=== PATIENT | female | born 1960 | race African-American/Black ===

== ENCOUNTER 2017-10-01 11:19 | Inpatient (IN) | payer OTHER ==
[~2017-10-01] VITALS: Ht 167.6 cm; Wt 101.4 kg
[~2017-10-01 11:19] MED LIST: AMLO5 PO; CYCL1PAK PO; ERGO2000 PO; ESCI10TA PO; GABA300 PO; LISI20 PO; METF500 PO; NAPR500 PO; RISP1TAB54 PO; RISP3 PO; TRAZ50TA4 PO; VENTAER INH
[2017-10-01 11:23] VITALS: BP 198/100; PULSE 108; RESP 22; TEMP 98.5; O2SAT 98
[2017-10-01 13:46] LABS: AUTOMATED NEUTROPHIL # 3.6 TH/MM3 (1.8-7.7); BASOPHIL # 0.1 TH/MM3 (0-0.2); BASOPHIL % 0.8 % (0.0-2.0); EOSINOPHIL # 0.1 TH/MM3 (0-0.4); EOSINOPHIL % 1.9 % (0.0-4.0); HEMATOCRIT 40.4 % (35.0-46.0); HEMOGLOBIN 13.1 GM/DL (11.6-15.3); LYMPH % 41.9 % (9.0-44.0); LYMPHOCYTE # 3.3 TH/MM3 (1.0-4.8); MEAN CELL VOLUME 83.6 FL (80.0-100.0); MEAN CORPUSCULAR HEMOGLOBIN 27.1 PG (27.0-34.0); MEAN CORPUSCULAR HGB CONC 32.4 % (32.0-36.0); MEAN PLATELET VOLUME 8.7 FL (7.0-11.0); MONO % 9.1 % (0.0-8.0); MONOCYTE # 0.7 TH/MM3 (0-0.9); NEUT % 46.3 % (16.0-70.0); PLATELET COUNT 270 TH/MM3 (150-450); RED BLOOD COUNT 4.83 MIL/MM3 (4.00-5.30); RED CELL DISTRIBUTION WIDTH 14.3 % (11.6-17.2); WHITE BLOOD COUNT 7.8 TH/MM3 (4.0-11.0)
[2017-10-01 14:04] LABS: ALBUMIN 3.5 GM/DL (3.4-5.0); ALT (GPT) 21 U/L (10-53); AST (GOT) 34 U/L (15-37); BICARBONATE 26.6 MEQ/L (21.0-32.0); BLOOD UREA NITROGEN 13 MG/DL (7-18); CHLORIDE 107 MEQ/L (98-107); CREATININE 1.09 MG/DL (0.50-1.00); GLOMERULAR FILTRATION RATE 62 ML/MIN (>89); GLUCOSE,RANDOM 83 MG/DL (74-106); SODIUM (NA) 142 MEQ/L (136-145)
[2017-10-01 14:12] LABS: ALKALINE PHOSPHATASE 130 U/L (45-117); TOTAL BILIRUBIN ADULT 0.3 MG/DL (0.2-1.0); TOTAL PROTEIN 8.2 GM/DL (6.4-8.2)
--- NOTE | 2017-10-01 14:40 | PD ---
HPI Chief Complaint: Psychiatric Symptoms Time Seen by Provider: 12:00 Travel History International Travel<30 days: No Contact w/Intl Traveler<30days: No Traveled to known affect area: No History of Present Illness HPI 57-year-old female with PMH of schizoaffective disorder, bipolar type presents the ED for psychiatric evaluation. Patient s endorses several social stressors including the of her mom, the incarceration of her son and living with her sister who will not allow her case workers to visit household. She endorses compliance with her daily medications. She states that despite taking meds she has been hearing voices that tell her to harm herself. She states that today the voices were telling her to go in the kitchen and cut herself. Endorses previous history of suicidal gesture of cutting herself. She states that instead she went outside and sought medical attention. She denies any somatic complaints. Endorses distant history of crack cocaine and alcohol use, states that she has been sober many years now. She did not take her anti- hypertensive medications today. PFSH Past Medical History Anemia: Yes Arthritis: No Asthma: Yes Autoimmune Disease: No Blood Disorders: No Anxiety: Yes Depression: Yes Heart Rhythm Problems: No Cancer: Yes Cardiac Catheterization: No Cardiovascular Problems: Yes High Cholesterol: No Chemotherapy: No Chest Pain: Yes Congestive Heart Failure: No COPD: No Cerebrovascular Accident: Yes (TIA ) Coronary Artery Disease: Yes Diabetes: Yes Patient Takes Glucophage: No Diminished Hearing: Yes (L EAR) Endocrine: No GERD: No Glaucoma: No Genitourinary: No Headaches: Yes Hepatitis: No Hiatal Hernia: No Hypertension: Yes Immune Disorder: No Kidney Stones: No Musculoskeletal: No Neurologic: Yes (SEIZURE X1) Psychiatric: Yes Reproductive: No Immunizations Current: No Migraines: No Myocardial Infarction: Yes Radiation Therapy: No Renal Failure: No Schizophrenia: Yes (SCHIZOAFFECTIVE DISORDER) Seizures: Yes Sickle Cell Disease: No Sleep Apnea: No Thyroid Disease: No Ulcer: Yes Tetanus Vaccination: > 5 Years Influenza Vaccination: No PNEUMOCCOCAL Vaccine (Year): 2 ?: Not Menopausal: Yes : 3 Para: 3 Miscarriage: 0 : 0 Tubal Ligation: Yes (1979) Past Surgical History Abdominal Surgery: No AICD: No Appendectomy: No Arteriovenous Shunt: No Body Medical Devices: DENTURES Cardiac Surgery: No Cholecystectomy: No Coronary Artery Bypass Graft: No Ear Surgery: No Endocrine Surgery: No Eye Surgery: No Genitourinary Surgery: No Gynecologic Surgery: Yes (TUBAL LIGATION) Insulin Pump: No Joint Replacement: No Neurologic Surgery: No Oral Surgery: No Pacemaker: No Thoracic Surgery: No Other Surgery: Yes Social History Alcohol Use: No (QUIT IN 2007) Tobacco Use: No (QUIT IN 2007) Substance Use: No (previous drug user - clean 8 years ) Allergies-Medications (Allergen,Severity, Reaction): Coded Allergies: dawit (Unverified Allergy, Severe, Rash, 12/30/16) morphine (Unverified Allergy, Severe, dizziness, unresponsiveness, 12/30/16 ) orange (Unverified Allergy, Severe, Rash, 12/30/16) Reported Meds & Prescriptions Reported Meds & Active Scripts Active Risperdal (Risperidone) 3 Mg Tab 3 Mg PO HS 14 Days Risperdal M-Tab (Risperidone) 1 Mg Tab 1 Mg PO BID Naprosyn (Naproxen) 500 Mg Tab 500 Mg PO BID Glucophage 500 mg (Metformin HCl) 500 Mg Tab 500 Mg PO DIRECTED 1 1/2 daily Prinivil 20 mg (Lisinopril) 20 Mg Tab 20 Mg PO DAILY Neurontin (Gabapentin) 300 Mg Cap 300 Mg PO BID Norvasc (Amlodipine Besylate) 5 Mg Tab 5 Mg PO HS Reported Ventolin Hfa (Albuterol Sulfate) 18 Gm Aero 0 INH UNKNOWN DOSE Vitamin D2 (Ergocalciferol) 2,000 Unit Tab 50,000 Unit PO WEEKLY Trazodone Hcl (Trazodone HCl) 50 Mg Tab 50 Mg PO DAILY Escitalopram Oxalate 10 Mg Tab 10 Mg PO DAILY Cyclobenzaprine Hcl (Cyclobenzaprine HCl) 10 Mg Tab 10 Mg PO BID Review of Systems Except as stated in HPI: all other systems reviewed are Neg Physical Exam Narrative GENERAL: Well-nourished, well-developed female no acute distress. PSYCH: Occasionally tearful, depressed mood. SKIN: Focused skin assessment warm/dry. HEAD: Normocephalic. EYES: No scleral icterus. No injection or drainage. NECK: Supple, trachea midline. No JVD or lymphadenopathy. CARDIOVASCULAR: Regular rate and rhythm without murmurs, gallops, or rubs. RESPIRATORY: Breath sounds equal bilaterally. No accessory muscle use. GASTROINTESTINAL: Abdomen soft, non-tender, nondistended. MUSCULOSKELETAL: No cyanosis, or edema. BACK: Nontender without obvious deformity. No CVA tenderness. Data Data Last Documented VS Vital Signs Date Time Temp Pulse Resp B/P (MAP) Pulse Ox O2 Delivery O2 Flow Rate FiO2 10/01/17 15:41 97.6 97 18 185/100 (128) 98 Room Air Orders Orders Complete Blood Count With Diff (10/01/17 12:13) Comprehensive Metabolic Panel (10/01/17 12:13) Thyroid Stimulating Hormone (10/01/17 12:13) Psych Screen (10/01/17 12:13) Drug Screen, Random Urine (10/01/17 12:13) Alcohol (Ethanol) (10/01/17 12:13) Lisinopril (Prinivil) (10/01/17 15:45) Labs Laboratory Tests Test 10/01/17 12:55 10/01/17 13:00 White Blood Count 7.8 TH/MM3 Red Blood Count 4.83 MIL/MM3 Hemoglobin 13.1 GM/DL Hematocrit 40.4 % Mean Corpuscular Volume 83.6 FL Mean Corpuscular Hemoglobin 27.1 PG Mean Corpuscular Hemoglobin Concent 32.4 % Red Cell Distribution Width 14.3 % Platelet Count 270 TH/MM3 Mean Platelet Volume 8.7 FL Neutrophils (%) (Auto) 46.3 % Lymphocytes (%) (Auto) 41.9 % Monocytes (%) (Auto) 9.1 % Eosinophils (%) (Auto) 1.9 % Basophils (%) (Auto) 0.8 % Neutrophils # (Auto) 3.6 TH/MM3 Lymphocytes # (Auto) 3.3 TH/MM3 Monocytes # (Auto) 0.7 TH/MM3 Eosinophils # (Auto) 0.1 TH/MM3 Basophils # (Auto) 0.1 TH/MM3 CBC Comment AUTO DIFF Differential Comment AUTO DIFF CONFIRMED Blood Urea Nitrogen 13 MG/DL Creatinine 1.09 MG/DL Random Glucose 83 MG/DL Total Protein 8.2 GM/DL Albumin 3.5 GM/DL Calcium Level 9.0 MG/DL Alkaline Phosphatase 130 U/L Aspartate Amino Transf (AST/SGOT) 34 U/L Alanine Aminotransferase (ALT/SGPT) 21 U/L Total Bilirubin 0.3 MG/DL Sodium Level 142 MEQ/L Potassium Level 4.3 MEQ/L Chloride Level 107 MEQ/L Carbon Dioxide Level 26.6 MEQ/L Anion Gap 8 MEQ/L Estimat Glomerular Filtration Rate 62 ML/MIN Thyroid Stimulating Hormone 3rd Gen 0.810 uIU/ML Ethyl Alcohol Level LESS THAN 3 MG/DL Urine Opiates Screen NEG Urine Barbiturates Screen NEG Urine Amphetamines Screen NEG Urine Benzodiazepines Screen NEG Urine Cocaine Screen NEG Urine Cannabinoids Screen NEG MDM Medical Decision Making Medical Screen Exam Complete: Yes Emergency Medical Condition: Yes Differential Diagnosis Adjustment disorder versus anxiety versus bipolar versus depression versus dementia versus electrolyte disorder versus malingering versus mood disorder versus ODD versus psychosis versus PTSD versus schizophrenia versus schizoaffective disorder versus substance-induced mood disorder versus other Narrative Course 57-year-old female with PMH of schizoaffective disorder, bipolar type presents the ED for psychiatric evaluation. Patient s endorses several social stressors including the of her mom, the incarceration of her son and living with her sister who will not allow her case workers to visit household. She endorses compliance with her daily medications. She states that despite taking meds she has been hearing voices that tell her to harm herself. She states that today the voices were telling her to go in the kitchen and cut herself. Endorses previous history of suicidal gesture of cutting herself. She states that instead she went outside and sought medical attention. She denies any somatic complaints. Endorses distant history of crack cocaine and alcohol use, states that she has been sober many years now. She did not take her anti- hypertensive medications today. Vitals reviewed. Pains hypertensive on presentation. Physical exam is unremarkable. Lab work without concerning abnormalities. Patient was administered in her daily dose of lisinopril. She is medically clear for psychiatric evaluation. Marie Worley October 01, 2017 14:40
[2017-10-01 15:41] VITALS: BP 185/100; PULSE 97; RESP 18; TEMP 97.6; O2SAT 98
[2017-10-01] MEDS ORDERED: LISINOPRIL 20 MG TAB PO ONE (15:45)
[2017-10-01] MEDS ORDERED: AMLO10TA2 PO (18:04)
[2017-10-01] MEDS ORDERED: DULO1CAP PO (18:14)
[2017-10-01 18:22] VITALS: BP 203/109; PULSE 89; RESP 20; O2SAT 98
[2017-10-01] MEDS ORDERED: amLODIPine BESYLATE 5 MG TAB PO ONE (18:30)
--- NOTE | 2017-10-01 20:45 | PD ---
History of Present Illness Chief Complaint: Psychiatric Symptoms Time Seen by Provider: 20:20 Travel History International Travel<30 Days: No Contact w/Intl Traveler<30days: No Known affected area: No Legal Status Legal Status: Involuntary [place] Act Signed By: ISAAK Hamlin History of Present Illness: History of Present Illness HPI 57-year-old, -Maltese, single female with PMH of schizoaffective disorder, bipolar type who presents the ED on a voluntary basis for psychiatric evaluation. Patient was placed under an involuntary status by ED provider. Patient reports that she is experiencing several social stressors including the of her mom 7 months ago, the incarceration of her son, having moved in with her sister 4 months ago and her sister not allowing her to have her catalytic case operator's visit her. She also tells me that approximately 4 weeks ago she stopped taking her nighttime medication because she was feeling too sedated. Patient also states she feels depressed with worry that she may have leukemia. This morning she was at home and began to experience increase in auditory command type hallucinations that were telling her to commit suicide. More specifically" they were telling me to go to the kitchen and get a knife and cut myself." Patient instead went outside and "began to pray and to talk to my mama and came to the hospital for help". Patient reports impaired sleep, decreased appetite. EMR is reviewed. Patient was last admitted to our inpatient psychiatric unit on December 2015. Current toxicology is negative. . PFSH Past Medical History Anemia: Yes Arthritis: No Asthma: Yes Autoimmune Disease: No Blood Disorders: No Anxiety: Yes Depression: Yes Heart Rhythm Problems: No Cancer: Yes Cardiac Catheterization: No Cardiovascular Problems: Yes High Cholesterol: No Chemotherapy: No Chest Pain: Yes Congestive Heart Failure: No COPD: No Cerebrovascular Accident: Yes (TIA ) Coronary Artery Disease: Yes Diabetes: Yes Patient Takes Glucophage: No Diminished Hearing: Yes (L EAR) Endocrine: No GERD: No Glaucoma: No Genitourinary: No Headaches: Yes Hepatitis: No Hiatal Hernia: No Hypertension: Yes Immune Disorder: No Kidney Stones: No Musculoskeletal: No Neurologic: Yes (SEIZURE X1) Psychiatric: Yes Reproductive: No Immunizations Current: No Migraines: No Myocardial Infarction: Yes Radiation Therapy: No Renal Failure: No Schizophrenia: Yes (SCHIZOAFFECTIVE DISORDER) Seizures: Yes Sickle Cell Disease: No Sleep Apnea: No Thyroid Disease: No Ulcer: Yes Tetanus Vaccination: > 5 Years Influenza Vaccination: No PNEUMOCCOCAL Vaccine (Year): 2 ?: Not Menopausal: Yes : 3 Para: 3 Miscarriage: 0 : 0 Tubal Ligation: Yes (1979) Past Surgical History Abdominal Surgery: No AICD: No Appendectomy: No Arteriovenous Shunt: No Body Medical Devices: DENTURES Cardiac Surgery: No Cholecystectomy: No Coronary Artery Bypass Graft: No Ear Surgery: No Endocrine Surgery: No Eye Surgery: No Genitourinary Surgery: No Gynecologic Surgery: Yes (TUBAL LIGATION) Insulin Pump: No Joint Replacement: No Neurologic Surgery: No Oral Surgery: No Pacemaker: No Thoracic Surgery: No Other Surgery: Yes Psychiatric History Psychiatric History Hx Psychiatric Treatment: Has had 2 inpatient psychiatric admissions to [facility] in 2016. One previous suicide attempt by cutting her wrist. Currently receives outpatient treatment at [facility] in [facility] and her counselor is Franny Medina. Her next outpatient appointment is in December History of Inpatient Treatment: Yes ([facility]) Guns or firearms in home: No Social History Single, has been living with her sister for the past 4 months. She has completed high school. Is currently on disability. Hx Alcohol Use: Yes (QUIT IN 2007) Hx Tobacco Use: No (QUIT IN 2007) Hx Substance Use: Yes Substance Use Type: Crack Other Substances Used: REPORTS BEING CLEAN AND SOBER FOR 10 YRS. PAST CRACK COCAINE Hx of Substance Use Treatment: No Family Psychiatric History None reported Allergies-Medications (Allergen,Severity, Reaction): Coded Allergies: dawit (Unverified Allergy, Severe, Rash, 12/30/16) morphine (Unverified Allergy, Severe, dizziness, unresponsiveness, 12/30/16 ) orange (Unverified Allergy, Severe, Rash, 12/30/16) Reported Meds & Prescriptions Reported Meds & Active Scripts Active Risperdal M-Tab (Risperidone) 1 Mg Tab 1 Mg PO BID Prinivil 20 mg (Lisinopril) 20 Mg Tab 20 Mg PO DAILY Reported Duloxetine DR (Duloxetine HCl) 20 Mg Capdr 20 Mg PO DAILY Amlodipine (Amlodipine Besylate) 10 Mg Tab 10 Mg PO DAILY Ventolin Hfa (Albuterol Sulfate) 18 Gm Aero 0 INH UNKNOWN DOSE Trazodone Hcl (Trazodone HCl) 50 Mg Tab 50 Mg PO DAILY Escitalopram Oxalate 10 Mg Tab 20 Mg PO DAILY Review of Systems Psychiatric: COMPLAINS OF: Depression, Hallucinations, Suicidal Ideation Mental Status Examination Appearance: Appropriate (Patient is maintaining basic hygiene) Consciousness: Alert Orientation: x4 Motor Activity: Normal gait Speech: Unremarkable Language: Adequate Fund of Knowledge: Adequate Attention and Concentration: Adequate Memory: Unremarkable Mood: Sad Affect: Blunt Thought Process & Associations: Intact, Goal directed Thought Content: Hallucinations Hallucination Type: Auditory (Command type to commit suicide) Delusion Type: None Suicidal Ideation: No Suicidal Plan: No Suicidal Intention: No Homicidal Ideation: No Homicidal Plan: No Homicidal Intention: No Insight: Fair Judgment: Adequate MDM Medical Decision Making Medical Record Reviewed: Yes Assessment/Plan 57-year-old, -Maltese, single female with PMH of schizoaffective disorder, bipolar type who presents the ED on a voluntary basis for psychiatric evaluation. Patient was placed under an involuntary status by ED provider. Patient reports that she is experiencing several social stressors including the of her mom 7 months ago, the incarceration of her son, having moved in with her sister 4 months ago and her sister not allowing her to have her catalytic case operator's visit her. She also tells me that approximately 4 weeks ago she stopped taking her nighttime medication because she was feeling too sedated. This morning the patient began to experience increase in command auditory hallucinations that were telling her to commit suicide and to go to the kitchen and get a knife and to cut her wrist. The patient then proceeded to come to the hospital for treatment. At this time the patient meets criteria for inpatient psychiatric treatment to protect due to potential for harm to self. She will be admitted for further evaluation, for safety, and for medication adjustment. Orders Orders Complete Blood Count With Diff (10/01/17 12:13) Comprehensive Metabolic Panel (10/01/17 12:13) Thyroid Stimulating Hormone (10/01/17 12:13) Psych Screen (10/01/17 12:13) Drug Screen, Random Urine (10/01/17 12:13) Alcohol (Ethanol) (10/01/17 12:13) Lisinopril (Prinivil) (10/01/17 15:45) Amlodipine (Norvasc) (10/01/17 18:30) Results Vital Signs Date Time Temp Pulse Resp B/P (MAP) Pulse Ox O2 Delivery O2 Flow Rate FiO2 10/01/17 18:22 89 20 203/109 (140) 98 Room Air 10/01/17 15:41 97.6 97 18 185/100 (128) 98 Room Air 10/01/17 11:23 98.5 108 22 198/100 (132) 98 Laboratory Tests Test 10/01/17 12:55 10/01/17 13:00 White Blood Count 7.8 Red Blood Count 4.83 Hemoglobin 13.1 Hematocrit 40.4 Mean Corpuscular Volume 83.6 Mean Corpuscular Hemoglobin 27.1 Mean Corpuscular Hemoglobin Concent 32.4 Red Cell Distribution Width 14.3 Platelet Count 270 Mean Platelet Volume 8.7 Neutrophils (%) (Auto) 46.3 Lymphocytes (%) (Auto) 41.9 Monocytes (%) (Auto) 9.1 Eosinophils (%) (Auto) 1.9 Basophils (%) (Auto) 0.8 Neutrophils # (Auto) 3.6 Lymphocytes # (Auto) 3.3 Monocytes # (Auto) 0.7 Eosinophils # (Auto) 0.1 Basophils # (Auto) 0.1 CBC Comment AUTO DIFF Differential Comment AUTO DIFF CONFIRMED Blood Urea Nitrogen 13 Creatinine 1.09 Random Glucose 83 Total Protein 8.2 Albumin 3.5 Calcium Level 9.0 Alkaline Phosphatase 130 Aspartate Amino Transf (AST/SGOT) 34 Alanine Aminotransferase (ALT/SGPT) 21 Total Bilirubin 0.3 Sodium Level 142 Potassium Level 4.3 Chloride Level 107 Carbon Dioxide Level 26.6 Anion Gap 8 Estimat Glomerular Filtration Rate 62 Thyroid Stimulating Hormone 3rd Gen 0.810 Ethyl Alcohol Level LESS THAN 3 Urine Opiates Screen NEG Urine Barbiturates Screen NEG Urine Amphetamines Screen NEG Urine Benzodiazepines Screen NEG Urine Cocaine Screen NEG Urine Cannabinoids Screen NEG Diagnosis Primary Impression: Schizoaffective disorder Additional Impression: 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
[2017-10-01 20:57] VITALS: BP 163/90; PULSE 78; RESP 18; O2SAT 97
[2017-10-01] MEDS ORDERED: MAGNESIUM HYDROXIDE SUSP 30 ML CUP PO PRN (21:00)
[2017-10-01] MEDS ORDERED: ALUMINUM/MAGNESIUM/SIMETH 30 ML CUP PO PRN (21:00)
[2017-10-01 21:50] VITALS: BP 168/86; PULSE 76; RESP 16; TEMP 98.2; O2SAT 99
[2017-10-02 07:52] LABS: BICARBONATE 27.8 MEQ/L (21.0-32.0); BLOOD UREA NITROGEN 11 MG/DL (7-18); CHLORIDE 105 MEQ/L (98-107); GLUCOSE,RANDOM 90 MG/DL (74-106); SODIUM (NA) 142 MEQ/L (136-145)
[2017-10-02 07:53] LABS: GLOMERULAR FILTRATION RATE 69 ML/MIN (>89)
[2017-10-02 07:55] LABS: CHOLESTEROL 188 MG/DL (120-200); CHOLESTEROL/ HDL RATIO 3.62 RATIO; HDL CHOLESTEROL 51.8 MG/DL (40.0-60.0); LDL CHOLESTEROL 115 MG/DL (0-99); TRIGLYCERIDES 104 MG/DL (42-150)
[2017-10-02] MEDS: LISINOPRIL 20 MG TAB PO SCH (09:00)
[2017-10-02] MEDS: risperiDONE 1 MG TAB PO SCH ×2 (12:00→20:46)
--- NOTE | 2017-10-02 12:05 | PD.CONS ---
[facility] By Reason for Consult Hypertension, noncompliant. Primary Care Physician Unknown Diagnoses: History of Present Illness Ms. Escamilla is a 57-year-old -Uk[place] female with a past medical history significant for hypertension, GERD, diabetes, schizophrenia, TIA, asthma, PUD, and seizure 1 who presents to the emergency department on a voluntary basis after she began to hear voices. [facility] has been consulted to assist with management of her hypertension for which she is noncompliant with medications. Patient is seen and examined in her room, ambulating with no assistive devices, appears to be in no acute distress. She also states that she is being seen by her primary physician and was in the process of being sent to a specialist to be worked up for possible leukemia. Patient denies any shortness of breath, cough, fevers, chills, nausea, vomiting, diarrhea, abdominal pain, chest pain, dizziness, lightheadedness, or visual changes. Review of Systems Except as stated in HPI: all other systems reviewed are Neg Past Family Social History Allergies: Coded Allergies: dawit (Unverified Allergy, Severe, Rash, 12/30/16) morphine (Unverified Allergy, Severe, dizziness, unresponsiveness, 12/30/16 ) orange (Unverified Allergy, Severe, Rash, 12/30/16) Past Medical History Hypertension TIA Diabetes Schizophrenia Asthma Peptic ulcer disease Seizure 1 Arthritis Past Surgical History Tubal ligation Hysterectomy Reported Medications Reported Meds & Active Scripts Active Risperdal M-Tab (Risperidone) 1 Mg Tab 1 Mg PO BID Prinivil 20 mg (Lisinopril) 20 Mg Tab 20 Mg PO DAILY Reported Duloxetine DR (Duloxetine HCl) 20 Mg Capdr 20 Mg PO DAILY Amlodipine (Amlodipine Besylate) 10 Mg Tab 10 Mg PO DAILY Ventolin Hfa (Albuterol Sulfate) 18 Gm Aero 0 INH UNKNOWN DOSE Trazodone Hcl (Trazodone HCl) 50 Mg Tab 50 Mg PO DAILY Escitalopram Oxalate 10 Mg Tab 20 Mg PO DAILY Active Ordered Medications Current Medications Medications (Trade) Dose Ordered Sig/Suzi Route Start Time Stop Time Status Last Admin (Tylenol) 650 mg Q4H PRN PO 10/01/17 21:00 (Milk Of Magnesia Liq) 30 ml DAILY PRN PO 10/01/17 21:00 (Mag-Al Plus Susp Liq) 30 ml Q6H PRN PO 10/01/17 21:00 (Norvasc) 10 mg DAILY PO 10/02/17 09:00 10/02/17 09:00 (Prinivil) 20 mg DAILY PO 10/02/17 09:00 10/02/17 09:00 (Benadryl) 50 mg HS PRN PO 10/02/17 21:00 (Atarax) 50 mg Q6H PRN PO 10/02/17 12:00 (Cymbalta Dr) 20 mg DAILY PO 10/03/17 09:00 (Lexapro) 20 mg DAILY PO 10/03/17 09:00 (Desyrel) 50 mg DAILY PO 10/03/17 09:00 (risperDAL) 1 mg Q12HR PO 10/02/17 12:00 10/02/17 12:00 Family History Brother: Leukemia Social History Patient reports that her drug of choice was a crack, in February she will be 10 years drug free. Physical Exam Vital Signs Vital Signs Date Time Temp Pulse Resp B/P (MAP) Pulse Ox O2 Delivery O2 Flow Rate FiO2 10/01/17 22:00 10/01/17 21:50 98.2 76 16 168/86 (113) 99 10/01/17 20:57 78 18 163/90 (114) 97 Room Air 10/01/17 18:22 89 20 203/109 (140) 98 Room Air 10/01/17 15:41 97.6 97 18 185/100 (128) 98 Room Air Physical Exam GENERAL: This is a well-nourished, well-developed patient, in no apparent distress. SKIN: No rashes, ecchymoses or lesions. Cool and dry. HEAD: Atraumatic. Normocephalic. EYES: Pupils equal round and reactive. Extraocular motions intact. No scleral icterus. No injection or drainage. ENT: Nose without bleeding, purulent drainage. Throat without erythema. Airway patent. NECK: Trachea midline. No JVD. Supple, nontender. CARDIOVASCULAR: Regular rate and rhythm without murmurs, gallops, or rubs. RESPIRATORY: Clear to auscultation. Breath sounds equal bilaterally. No wheezes , rales, or rhonchi. GASTROINTESTINAL: Abdomen soft, non-tender, nondistended. No palpable masses. No guarding. Normoactive bowel sounds. MUSCULOSKELETAL: Extremities without clubbing, cyanosis, or edema. No joint tenderness, effusion, or edema noted. No calf tenderness. NEUROLOGICAL: Awake and alert, oriented x3. Cranial nerves II through XII grossly intact. Motor and sensory grossly within normal limits. Five out of 5 muscle strength in all muscle groups. Normal speech. Laboratory Laboratory Tests Test 10/01/17 12:55 10/01/17 13:00 10/02/17 06:40 White Blood Count 7.8 Red Blood Count 4.83 Hemoglobin 13.1 Hematocrit 40.4 Mean Corpuscular Volume 83.6 Mean Corpuscular Hemoglobin 27.1 Mean Corpuscular Hemoglobin Concent 32.4 Red Cell Distribution Width 14.3 Platelet Count 270 Mean Platelet Volume 8.7 Neutrophils (%) (Auto) 46.3 Lymphocytes (%) (Auto) 41.9 Monocytes (%) (Auto) 9.1 Eosinophils (%) (Auto) 1.9 Basophils (%) (Auto) 0.8 Neutrophils # (Auto) 3.6 Lymphocytes # (Auto) 3.3 Monocytes # (Auto) 0.7 Eosinophils # (Auto) 0.1 Basophils # (Auto) 0.1 CBC Comment AUTO DIFF Differential Comment AUTO DIFF CONFIRMED Blood Urea Nitrogen 13 11 Creatinine 1.09 1.00 Random Glucose 83 90 Total Protein 8.2 Albumin 3.5 Calcium Level 9.0 9.0 Alkaline Phosphatase 130 Aspartate Amino Transf (AST/SGOT) 34 Alanine Aminotransferase (ALT/SGPT) 21 Total Bilirubin 0.3 Sodium Level 142 142 Potassium Level 4.3 3.6 Chloride Level 107 105 Carbon Dioxide Level 26.6 27.8 Anion Gap 8 9 Estimat Glomerular Filtration Rate 62 69 Thyroid Stimulating Hormone 3rd Gen 0.810 Ethyl Alcohol Level LESS THAN 3 Urine Opiates Screen NEG Urine Barbiturates Screen NEG Urine Amphetamines Screen NEG Urine Benzodiazepines Screen NEG Urine Cocaine Screen NEG Urine Cannabinoids Screen NEG Triglycerides Level 104 Cholesterol Level 188 LDL Cholesterol 115 HDL Cholesterol 51.8 Cholesterol/HDL Ratio 3.62 Result Diagram: 10/01/17 1255 10/02/17 0640 Assessment and Plan Assessment and Plan Ms. Escamilla is a 57-year-old -Uk[place] female with a past medical history significant for hypertension, GERD, diabetes, schizophrenia, TIA, asthma, PUD, and seizure 1 who presents to the emergency department on a voluntary basis after she began to hear voices. [facility] has been consulted to assist with management of her hypertension for which she is noncompliant with medications. Schizophrenia -Treatment per psychiatry Hypertension, uncontrolled BP on admission 190/100 -Lisinopril 20 mg and Norvasc 10 mg continued -BP checked this afternoon appears stable Hx DM, diet controlled -Random blood sugars 2 stable, hemoglobin A1c 5.5 Reports of possible leukemia -CBC reviewed, unremarkable. Can follow-up as outpatient for further workup. DVT prophylaxis-ambulation Discussed with patient and nurse. Thank you for this consultation, blood pressure stable, no diabetes. [facility] will sign off, please reconsult if needed. Perez Cooper October 02, 2017 12:04
--- NOTE | 2017-10-02 12:05 | HHI.HP ---
Provisional Diagnosis Admission Date October 01, 2017 at 21:01 [place]. Schizoaffective disorder bipolar type Certification of Person's Competence To Provide Express and Informed Consent I have personally examined Delores Escamilla , a person being served at [facility] on, October 02, 2017 11:58. Express and informed consent means consent voluntarily given in writing, by a competent person, after sufficient explanation and disclosure of the subject matter involved to enable the person to make a knowing and willful decision without any element of force, fraud, deceit, duress, or other form of constraint or coercion. This person is 18 years of age or older, is not now known to be incompetent to consent to treatment with a guardian advocate, and does not have a health care surrogate or proxy currently making medical treatment decisions. I have found this person to be one of the following: [] Competent to provide express and informed consent, as defined above, for voluntary admission to this facility and is competent to provide express and informed consent for treatment. He/she has the consistent capacity to make well reasoned, willful, and knowing decisions concerning his or her medical or mental health treatment. The person fully and consistently understands the purpose of the admission for examination/placement and is fully capable of personally exercising all rights assured [place] [] Incompetent to provide express and informed consent to voluntary admission, and this is incompetent to provide express and informed consent to treatment. The person must be transferred to involuntary status and a petition for a guardian advocate filed with the Circuit Court. [xxxx] Refusing to provide express and informed consent to voluntary admission but is competent to provide express and informed consent for treatment. The person must be discharged or transferred to involuntary status. Form shall be completed within 24 hours of a person's arrival at the receiving facility and filed in the clinical record of each person: 1. Admitted on a voluntary basis 2. Permitted to provide express and informed consent to his/her own treatment 3. Allowed to transfer from involuntary to voluntary status 4. Prior to permitting a person to consent to his or her own treatment after having been previously found incompetent to consent to treatment. History of Present Illness Capacity: Lacks Capacity (Patient lacks capacity to sign for admission, patient has capacity to sign for medication) HPI Patient is a 57-year-old -[place] female who comes here under a [place] act signed by eligible's signature from [facility] services dated 10/01 at 2 PM with document reviewed stating patient endorses having voices telling her to harm herself history suicidal gestures plans to cut wrists. Patient seen screen in the ED and toxicology negative blood alcohol level negative. At the present time patient sitting quietly in the room nurse Stephanie and counselor remington present throughout session it appears patient did recognize me from a prior contact years ago. Patient gives a long history mental health problems going back to her teen years. 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 It appears patient is having increased stress with the of her mother a number of months ago, her son being incarcerated for having sex with a juvenile, and her having to live with her sister due to financial issues. Patient gives a past history of alcohol and drug misuse though she has been sober for a number of years. She states she has been compliant with his psychotropic medications but 2 days ago with increased auditory hallucinations of a command nature telling her to harm herself. At this time patient states she feels safe with us. Patient denies any prior physical or sexual abuse. She is vague about any past mental health history in her family. She states she has 3 adult children. At the present time patient meets criteria for acute inpatient psychiatric hospitalization of the [place] act L the first opinion request second opinion. I feel she does have capacity to sign for medications. I did review of the med reconciliation will continue her medications per that list and we will add the Resporal 1 mg every 12 hours. We will have hospitalist consult with us to the patient's hypertension. 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 Past Family Social History Coded Allergies: dawit (Unverified Allergy, Severe, Rash, 12/30/16) morphine (Unverified Allergy, Severe, dizziness, unresponsiveness, 12/30/16 ) orange (Unverified Allergy, Severe, Rash, 12/30/16) Active Scripts Risperidone (Risperdal M-Tab) 1 Mg Tab, 1 MG PO BID for health, #60 TAB 0 Refills Prov:Augustus Pinto MD 12/05/15 Lisinopril 20 mg (Prinivil 20 mg) 20 Mg Tab, 20 MG PO DAILY for health, #30 TAB 0 Refills Prov:Augustus Pinto MD 12/05/[address] (Duloxetine DR) 20 Mg Capdr, 20 MG PO DAILY, #30 CAP 0 Refills 10/01/17 Amlodipine (Amlodipine) 10 Mg Tab, 10 MG PO DAILY for Blood Pressure Management , #30 TAB 0 Refills 10/01/17 Albuterol Sulfate (Ventolin Hfa) 18 Gm Aero, 0 INH, BOX UNKNOWN DOSE 12/02/15 Trazodone Hcl (Trazodone Hcl) 50 Mg Tab, 50 MG PO DAILY, TAB 10/07/15 Escitalopram Oxalate (Escitalopram Oxalate) 10 Mg Tab, 20 MG PO DAILY, TAB 10/07/15 Discontinued Scripts Risperidone (Risperdal) 3 Mg Tab, 3 MG PO HS for hallucinations for 14 Days, TAB 1 Refill Prov:Octavio Beavers MD 01/04/16 Current Medications Medications (Trade) Dose Ordered Sig/Suzi Route Start Time Stop Time Status Last Admin (Tylenol) 650 mg Q4H PRN PO 10/01/17 21:00 (Milk Of Magnesia Liq) 30 ml DAILY PRN PO 10/01/17 21:00 (Mag-Al Plus Susp Liq) 30 ml Q6H PRN PO 10/01/17 21:00 (Norvasc) 10 mg DAILY PO 10/02/17 09:00 10/02/17 09:00 (Prinivil) 20 mg DAILY PO 10/02/17 09:00 10/02/17 09:00 Family Psych History Patient denies Social History Patient single living with sister Patient's Strengths (min. 2) Patient cooperative and able access healthcare Physical Exam Patient seen screen in the ED that exam reviewed and agreed with patient is sitting quietly in her room she is in no acute distress, she is in no respiratory distress, no complaints of abdominal pain, patient moving all 4 extremities without difficulty Vital Signs Vital Signs Date Time Temp Pulse Resp B/P (MAP) Pulse Ox O2 Delivery O2 Flow Rate FiO2 10/01/17 22:00 10/01/17 21:50 98.2 76 16 99 10/01/17 20:57 Room Air Lab Results Test 10/01/17 12:55 10/01/17 13:00 10/02/17 06:40 White Blood Count 7.8 TH/MM3 Red Blood Count 4.83 MIL/MM3 Hemoglobin 13.1 GM/DL Hematocrit 40.4 % Mean Corpuscular Volume 83.6 FL Mean Corpuscular Hemoglobin 27.1 PG Mean Corpuscular Hemoglobin Concent 32.4 % Red Cell Distribution Width 14.3 % Platelet Count 270 TH/MM3 Mean Platelet Volume 8.7 FL Neutrophils (%) (Auto) 46.3 % Lymphocytes (%) (Auto) 41.9 % Monocytes (%) (Auto) 9.1 % Eosinophils (%) (Auto) 1.9 % Basophils (%) (Auto) 0.8 % Neutrophils # (Auto) 3.6 TH/MM3 Lymphocytes # (Auto) 3.3 TH/MM3 Monocytes # (Auto) 0.7 TH/MM3 Eosinophils # (Auto) 0.1 TH/MM3 Basophils # (Auto) 0.1 TH/MM3 CBC Comment AUTO DIFF Differential Comment AUTO DIFF CONFIRMED Blood Urea Nitrogen 13 MG/DL 11 MG/DL Creatinine 1.09 MG/DL 1.00 MG/DL Random Glucose 83 MG/DL 90 MG/DL Total Protein 8.2 GM/DL Albumin 3.5 GM/DL Calcium Level 9.0 MG/DL 9.0 MG/DL Alkaline Phosphatase 130 U/L Aspartate Amino Transf (AST/SGOT) 34 U/L Alanine Aminotransferase (ALT/SGPT) 21 U/L Total Bilirubin 0.3 MG/DL Sodium Level 142 MEQ/L 142 MEQ/L Potassium Level 4.3 MEQ/L 3.6 MEQ/L Chloride Level 107 MEQ/L 105 MEQ/L Carbon Dioxide Level 26.6 MEQ/L 27.8 MEQ/L Anion Gap 8 MEQ/L 9 MEQ/L Estimat Glomerular Filtration Rate 62 ML/MIN 69 ML/MIN Thyroid Stimulating Hormone 3rd Gen 0.810 uIU/ML Ethyl Alcohol Level LESS THAN 3 MG/DL Urine Opiates Screen NEG Urine Barbiturates Screen NEG Urine Amphetamines Screen NEG Urine Benzodiazepines Screen NEG Urine Cocaine Screen NEG Urine Cannabinoids Screen NEG Triglycerides Level 104 MG/DL Cholesterol Level 188 MG/DL LDL Cholesterol 115 MG/DL HDL Cholesterol 51.8 MG/DL Cholesterol/HDL Ratio 3.62 RATIO Mental Status Examination Appearance: Appropriate (Patient is maintaining basic hygiene) Consciousness: Alert Orientation: x4 Motor Activity: Normal gait Speech: Unremarkable Language: Adequate Fund of Knowledge: Adequate Attention and Concentration: Adequate Memory: Unremarkable Mood: Sad Affect: Other (Decreased range and intensity) Thought Process & Associations: Intact, Goal directed Thought Content: Hallucinations Hallucination Type: Auditory (Command type to commit suicide) Delusion Type: None Suicidal Ideation: No Suicidal Plan: No Suicidal Intention: No Homicidal Ideation: No Homicidal Plan: No Homicidal Intention: No Insight: Fair Judgment: Adequate Assessment & Plan Problem List: (1) Schizoaffective disorder ICD Codes: F25.9 - Schizoaffective disorder, unspecified Status: Acute Assessment & Plan Estimated LOS: 3-5 days patient's voices are much softer today, patient meets criteria for further inpatient psychiatric hospitalization under the Bass[place] act L the first opinion request second opinion. Continue medications as mentioned above health hospitalist consult will S Discharge Planning Return home to follow-up [facility] act Request HC Surrog/Guard Advoc?: No Problem Qualifiers (1) Schizoaffective disorder: Qualified Codes: F25.0 - Schizoaffective disorder, bipolar type Augustus Pinto MD October 02, 2017 12:05
[2017-10-02 13:36] LABS: HEMOGLOBIN A1C 5.5 % (4.3-6.0)
[2017-10-02 15:39] VITALS: BP 138/79; PULSE 94; RESP 18; TEMP 98.7; O2SAT 95
[2017-10-02 16:34] VITALS: BP 138/79; PULSE 94; RESP 18; TEMP 98.7; O2SAT 96
[2017-10-02] MEDS: ACETAMINOPHEN 325 MG TAB PO PRN (20:54)
[2017-10-02] MEDS ORDERED: diphenhydrAMINE HCL 50 MG CAP PO PRN (21:00)
[2017-10-03 04:50] VITALS: BP 151/85; PULSE 75; RESP 16; TEMP 97.8; O2SAT 98
[2017-10-03] MEDS: ESCITALOPRAM OXALATE 10 MG TAB PO SCH (08:47)
[2017-10-03] MEDS: DULoxetine HCl DR 20 MG CAP PO SCH (08:47)
[2017-10-03] MEDS: risperiDONE 1 MG TAB PO SCH ×2 (08:47→20:15)
[2017-10-03] MEDS: LISINOPRIL 20 MG TAB PO SCH (08:48)
[2017-10-03] MEDS: ACETAMINOPHEN 325 MG TAB PO PRN (08:51)
[2017-10-03] MEDS ORDERED: traZODone HCL 50 MG TAB PO SCH (09:00)
--- NOTE | 2017-10-03 13:59 | EKG ---
Date Performed: 10/02/2017 Time Performed: 13:33:18 PTAGE: 57 years EKG: Sinus rhythm NONSPECIFIC T-WAVE ABNORMALITY BORDERLINE ECG PREVIOUS TRACING : 11/12/2015 16.50 Since the previous tracing, no significant change noted DOCTOR: Jeovanny Daniels Interpretating Date/Time 10/03/2017 13:56:11
--- NOTE | 2017-10-03 14:24 | PD.PSY.CON ---
Provisional Diagnosis Admission Date October 01, 2017 at 21:01 [place] I. Schizoaffective disorder bipolar type History of Present Illness Service Psychiatry Consult Requested By Psychiatry Reason for Consult 2nd opinion Primary Care Physician Unknown HPI Pt seen and discussed with staff. Chart reviewed. [facility] to command AH instructing he to kill self. She had been non compliant with medications at home and had numerous stressors including of mother and incarceration of son. She has been compliant with meds since admission and denies side effects. She reports continued AH but mood has improved. She has been isolative to room and has spent most of day sleeping. Review of Systems Psychiatric: COMPLAINS OF: Hallucinations, Suicidal Ideation Past Family Social History Coded Allergies: dawit (Unverified Allergy, Severe, Rash, 12/30/16) morphine (Unverified Allergy, Severe, dizziness, unresponsiveness, 12/30/16 ) orange (Unverified Allergy, Severe, Rash, 12/30/16) Active Scripts Risperidone (Risperdal M-Tab) 1 Mg Tab, 1 MG PO BID for health, #60 TAB 0 Refills Prov:Augustus Pinto MD 12/05/15 Lisinopril 20 mg (Prinivil 20 mg) 20 Mg Tab, 20 MG PO DAILY for health, #30 TAB 0 Refills Prov:Augustus Pinto MD 12/05/[address] (Duloxetine DR) 20 Mg Capdr, 20 MG PO DAILY, #30 CAP 0 Refills 10/01/17 Amlodipine (Amlodipine) 10 Mg Tab, 10 MG PO DAILY for Blood Pressure Management , #30 TAB 0 Refills 10/01/17 Albuterol Sulfate (Ventolin Hfa) 18 Gm Aero, 0 INH, BOX UNKNOWN DOSE 12/02/15 Trazodone Hcl (Trazodone Hcl) 50 Mg Tab, 50 MG PO DAILY, TAB 10/07/15 Escitalopram Oxalate (Escitalopram Oxalate) 10 Mg Tab, 20 MG PO DAILY, TAB 10/07/15 Discontinued Scripts Risperidone (Risperdal) 3 Mg Tab, 3 MG PO HS for hallucinations for 14 Days, TAB 1 Refill Prov:Octavio Beavers MD 01/04/16 Current Medications Medications (Trade) Dose Ordered Sig/Suzi Route Start Time Stop Time Status Last Admin (Tylenol) 650 mg Q4H PRN PO 10/01/17 21:00 10/03/17 08:51 (Milk Of Magnesia Liq) 30 ml DAILY PRN PO 10/01/17 21:00 (Mag-Al Plus Susp Liq) 30 ml Q6H PRN PO 10/01/17 21:00 (Norvasc) 10 mg DAILY PO 10/02/17 09:00 10/03/17 08:47 (Prinivil) 20 mg DAILY PO 10/02/17 09:00 10/03/17 08:48 (Benadryl) 50 mg HS PRN PO 10/02/17 21:00 10/02/17 20:54 (Atarax) 50 mg Q6H PRN PO 10/02/17 12:00 (Cymbalta Dr) 20 mg DAILY PO 10/03/17 09:00 10/03/17 08:47 (Lexapro) 20 mg DAILY PO 10/03/17 09:00 10/03/17 08:47 (Desyrel) 50 mg DAILY PO 10/03/17 09:00 10/03/17 08:49 (risperDAL) 1 mg Q12HR PO 10/02/17 12:00 10/03/17 08:47 Patient's Strengths (min. 2) Patient cooperative and able access healthcare Physical Exam Vital Signs Vital Signs Date Time Temp Pulse Resp B/P (MAP) Pulse Ox O2 Delivery O2 Flow Rate FiO2 10/03/17 04:50 97.8 75 16 151/85 (107) 98 10/01/17 20:57 Room Air Mental Status Examination Appearance: Appropriate (Patient is maintaining basic hygiene) Consciousness: Alert Orientation: x4 Motor Activity: Normal gait Speech: Unremarkable Language: Adequate Fund of Knowledge: Adequate Attention and Concentration: Adequate Memory: Unremarkable Mood: Sad Affect: Flat Thought Process & Associations: Linear Thought Content: Hallucinations Hallucination Type: Auditory (Command type to commit suicide) Delusion Type: None Suicidal Ideation: No Suicidal Plan: No Suicidal Intention: No Homicidal Ideation: No Homicidal Plan: No Homicidal Intention: No Insight: Fair Judgment: Impulsive Assessment & Plan Problem List: (1) Schizoaffective disorder ICD Codes: F25.9 - Schizoaffective disorder, unspecified Status: Acute Assessment & Plan I agree that pt meets criteria for involuntary hospitalization due to impairments in safety. 2nd opinion paperwork completed. Estimated LOS: days Request HC Surrog/Guard Advoc?: No Problem Qualifiers (1) Schizoaffective disorder: Qualified Codes: F25.0 - Schizoaffective disorder, bipolar type Talia Pelayo MD October 03, 2017 14:24
[2017-10-03 17:35] VITALS: BP 158/92; PULSE 81; RESP 18; TEMP 97.9; O2SAT 99
[2017-10-03] MEDS: hydrOXYzine HCL 50 MG TAB PO PRN (20:15)
[2017-10-04] MEDS: ACETAMINOPHEN 325 MG TAB PO PRN ×2 (05:20→20:15)
[2017-10-04 05:54] VITALS: BP 129/66; PULSE 75; RESP 16; TEMP 98.1; O2SAT 97
[2017-10-04] MEDS: risperiDONE 1 MG TAB PO SCH ×2 (09:00→20:15)
[2017-10-04] MEDS: ESCITALOPRAM OXALATE 10 MG TAB PO SCH (09:00)
[2017-10-04] MEDS: LISINOPRIL 20 MG TAB PO SCH (09:00)
[2017-10-04] MEDS: DULoxetine HCl DR 20 MG CAP PO SCH (09:00)
--- NOTE | 2017-10-04 13:22 | HHI.PYPN ---
Subjective Remarks Pt seen and discussed with staff. She has been out of room today and has not been sleeping excessively. She attended therapeutic groups today. No SI/HI. Mental Status Examination Appearance: Appropriate (Patient is maintaining basic hygiene) Consciousness: Alert Orientation: x4 Motor Activity: Normal gait Speech: Unremarkable Language: Adequate Fund of Knowledge: Adequate Attention and Concentration: Adequate Memory: Unremarkable Mood: Sad Affect: Flat Thought Process & Associations: Linear Thought Content: Hallucinations Hallucination Type: Auditory (decreased) Delusion Type: None Suicidal Ideation: No Suicidal Plan: No Suicidal Intention: No Homicidal Ideation: No Homicidal Plan: No Homicidal Intention: No Insight: Fair Judgment: Impulsive Results Vitals/IOs Vital Signs Date Time Temp Pulse Resp B/P (MAP) Pulse Ox O2 Delivery O2 Flow Rate FiO2 10/04/17 05:54 98.1 75 16 129/66 (87) 97 10/01/17 20:57 Room Air Assessment & Plan Problem List: (1) Schizoaffective disorder ICD Codes: F25.9 - Schizoaffective disorder, unspecified Status: Acute Assessment & Plan Pt improving. Continue current tx plan. Estimated LOS: days Justification for Cont. Inpt. impairments in reality testing Request HC Surrog/Guard Advoc?: No Problem Qualifiers (1) Schizoaffective disorder: Qualified Codes: F25.0 - Schizoaffective disorder, bipolar type Talia Pelayo MD October 04, 2017 13:22
[2017-10-04 18:30] VITALS: BP 184/84; PULSE 94; RESP 20; TEMP 97.9; O2SAT 96
[2017-10-04] MEDS: hydrOXYzine HCL 50 MG TAB PO PRN (20:15)
[2017-10-04 20:20] VITALS: BP 200/84
[2017-10-04 21:07] VITALS: BP 146/68; PULSE 97
[2017-10-05 06:09] VITALS: BP 131/72; PULSE 90; RESP 16; TEMP 98.5; O2SAT 99
[2017-10-05] MEDS: ACETAMINOPHEN 325 MG TAB PO PRN (07:24)
[2017-10-05] MEDS: ESCITALOPRAM OXALATE 10 MG TAB PO SCH (09:41)
[2017-10-05] MEDS: risperiDONE 1 MG TAB PO SCH (09:42)
[2017-10-05] MEDS: DULoxetine HCl DR 20 MG CAP PO SCH (09:42)
[2017-10-05] MEDS: LISINOPRIL 20 MG TAB PO SCH (09:42)
--- NOTE | 2017-10-05 10:37 | PD.TTN ---
Patient Problems 1. Discharge planning 2. Medication compliance 3. Knowledge deficit 4. Lack of coping skills Progress Toward Goals Provider Present: Dr. Best Pinto Provider Input: Dr. Pinto's treatment team met to discuss patient's treatment plan, medication and discharge. Patient is doing well and will discharged home today. Nurse(s) Input: Patient's nurse reports patient is doing well. Patient has been no behavioral problem on unit. Psychiatric Counselors Present: Beverly Sr [facility] Psych Therapist Input: Patient presented cooperative, pleasant, affect appropriate. Patient's speech was clear and organized. [facility] with [facility]. Patient reports not hearing any voices and having no suicidal or homicidal ideation. Group Spec/RT/OT/DENTON Present: BERTIN Hammond Group Spec/RT/OT/DENTON Input: Patient attends groups. Beverly Sr [facility] October 05, 2017 10:37
[2017-10-05] MEDS ORDERED: LISI-515 PO (13:18)
[2017-10-05] MEDS ORDERED: AMLO10TA2 PO (13:18)
[2017-10-05] MEDS ORDERED: DULO1CAP PO (13:18)
[2017-10-05] MEDS ORDERED: ESCI20TA PO (13:18)
[2017-10-05] MEDS ORDERED: RISP1 PO (13:18)
--- NOTE | 2017-10-05 13:22 | HHI.DS ---
Psychiatry Discharge Summary Inpatient Psychiatric care?: Yes Advance Directive: No Reason Not Provided: Due to Patient Condition Mental Health AdvanceDirective: No Health Care Proxy: No Admission Admission Date October 01, 2017 at 21:01 Admission Diagnosis: (1) Schizoaffective disorder ICD Code: F25.9 - Schizoaffective disorder, unspecified Brief History Pt seen and discussed with staff. Chart reviewed. Pt was admitted to [facility] bethany pinto BA due to command AH instructing he to kill self. She had been non compliant with medications at home and had numerous stressors including of mother and incarceration of son. She has been compliant with meds since admission and denies side effects. She reports continued AH but mood has improved. She has been isolative to room and has spent most of day sleeping. Tobacco Use In Past 30 Days: No Tobacco Past 30 Days Alcohol Use: Never Hospital Course Course was uneventful, social complaints with medication from day of admission. The auditory hallucinations have gone away, her paranoia has markedly softened. She states she had a good weekend. Patient is seen today in the [facility] with her staff. She denies suicidality or homicidality voices or visions. States she feels better and wishes to be discharged today to her home. At this time she no longer meets criteria for inpatient psychiatric hospitalizationwill be discharged today to home with follow-up stroke [place] act outpatient medication management. She will be given 1 month supply of her scheduled medication Results Blood Pressure 131 / 72 Vital Signs Date Time Temp Pulse Resp B/P (MAP) Pulse Ox O2 Delivery O2 Flow Rate FiO2 10/05/17 06:09 98.5 90 16 131/72 (91) 99 10/01/17 20:57 Room Air Laboratory Results Test 10/02/17 06:40 Cholesterol Level 188 MG/DL (120-200) HDL Cholesterol 51.8 MG/DL (40.0-60.0) Hemoglobin A1c 5.5 % (4.3-6.0) LDL Cholesterol 115 MG/DL (0-99) Triglycerides Level 104 MG/DL (42-150) Summary of Procedures None done Pending results at discharge: No Medications # of Antipsychotic meds at D/C: 1 Approp Antipsych med options 1 - Minimum of three failed multiple trials of monotherapy. 2 - Documented plan to taper to monotherapy due to previous use of multiple meds OR cross-taper in progress at D/C. 3 - Documentation of augmentation of Clozapine. 4 - Justification other than those listed in allowable values 1-3, document here : Discharge Discharge Date: October 05, 2017 Discharge Diagnosis: (1) Schizoaffective disorder Diagnosis: Principal ICD Code: F25.9 - Schizoaffective disorder, unspecified Pt Condition on Discharge: Stable Discharge Disposition: Discharge Home Discharge Instructions Diet Instructions: As Tolerated, No Restrictions Activities you can perform: Regular-No Restrictions Scheduled Appointment: Александр [place] Discharge Time > 30 minutes Mental Status Examination Appearance: Appropriate (Patient is maintaining basic hygiene) Consciousness: Alert Orientation: x4 Motor Activity: Normal gait Speech: Unremarkable Language: Adequate Fund of Knowledge: Adequate Attention and Concentration: Adequate Memory: Unremarkable Mood: Sad Affect: Flat Thought Process & Associations: Linear Thought Content: Hallucinations Hallucination Type: Auditory (decreased) Delusion Type: None Suicidal Ideation: No Suicidal Plan: No Suicidal Intention: No Homicidal Ideation: No Homicidal Plan: No Homicidal Intention: No Insight: Fair Judgment: Impulsive Discharge/Advance Care Plan Health Problems: (1) Schizoaffective disorder Goals to promote your health * To prevent worsening of your condition and complications * To maintain your health at the optimal level Directions to meet your goals Take your medications as prescribed Follow your dietary instruction Follow activity as directed Keep your appointments as scheduled Take your immunizations and boosters as scheduled If your symptoms worsen call your PCP, if no PCP go to Urgent Care Center or Emergency Room For 08/12 questions related to your inpatient stay or results of tests pending at discharge, please contact Dr. Augustus Pinto at Smoking is Dangerous to Your Health. Avoid second hand smoking Problem Qualifiers (1) Schizoaffective disorder: Qualified Codes: F25.0 - Schizoaffective disorder, bipolar type Augustus Pinto MD October 05, 2017 13:22
== END 2017-10-05 14:20 | disposition home or self-care (01) | DRG 885 ==
LOC: NEPD 11:19 → NEDA 21:01 → H260 21:51
PROVIDERS: ADMIT Psychiatry & Neurology Psychiatry; ATTEND Psychiatry & Neurology Psychiatry
DX: F25.0 Schizoaffective disorder, bipolar type (principal); E11.9 Type 2 diabetes mellitus without complications; I10 Essential (primary) hypertension; I25.10 Atherosclerotic heart disease of native coronary artery without angina pectoris; J45.909 Unspecified asthma, uncomplicated; H91.91 Unspecified hearing loss, right ear; I25.2 Old myocardial infarction; K21.9 Gastro-esophageal reflux disease without esophagitis; Z79.84 Long term (current) use of oral hypoglycemic drugs; Z86.73 Personal history of transient ischemic attack (TIA), and cerebral infarction without residual deficits; Z87.891 Personal history of nicotine dependence; Z88.5 Allergy status to narcotic agent; Z91.14 Patient's other noncompliance with medication regimen; Z91.5 Personal history of self-harm
CPT/HCPCS: 80048; 80053; 80061; 80307; 83036; 84443; 85025; 93005; 99285; Q0163

== ENCOUNTER 2017-11-12 11:07 | Inpatient (IN) ==
[2017-11-15] MEDS ORDERED: Aluminum/Magnesium/Simethacone Susp 30 ML UDC PO PRN (08:30)
[2017-11-15] MEDS ORDERED: amLODIPine 10 MG Tablet PO SCH (09:00)
[2017-11-15] MEDS ORDERED: Lisinopril 20 MG Tablet PO SCH (09:00)
[2017-11-15] MEDS: Ferrous Sulfate 325 MG Tablet PO SCH (11:00)
[2017-11-15] MEDS: Acetaminophen 325 MG Tablet PO PRN (11:01)
[2017-11-15] MEDS: Lidocaine 5% Patch T-DERMAL SCH (11:49)
[2017-11-15] MEDS: amLODIPine 10 MG Tablet PO SCH (12:50)
--- NOTE | 2017-11-15 14:37 | P.PNPSY ---
Subjective Remarks: Patient was seen and case discussed with nursing. Patient continues with various somatic complaints of pain. As noted yesterday, there is a possibility of secondary gain of benefits and living situation. His behaving well on the unit. Continues to state that her hallucinations have resolved. Social on the unit and compliant with medications. Mental Status Examination Consciousness: Alert Orientation: x4 Motor Activity: Normal gait Speech: Unremarkable Language: Adequate Fund of Knowledge: Adequate Attention and Concentration: Easily distracted Memory: Unremarkable Mood: Anxious, Irritable Affect: Blunt Thought Process & Associations: Disorganized Thought Content: Appropriate Hallucination Type: None Delusion Type: None Suicidal Ideation: No Suicidal Plan: No Suicidal Intention: No Homicidal Ideation: No Homicidal Plan: No Homicidal Intention: No Insight: Poor Judgment: Poor Assessment and Plan - Assessment (1) Schizoaffective disorder Code(s): F25.9 - Schizoaffective disorder, unspecified Status: Acute - Plan Plan: Estimated LOS: [] days Continue current treatment plan Justification for Continued Inpatient Stay: Patient would decompensate in a less restrictive setting
--- NOTE | 2017-11-15 16:18 | P.PN ---
Subjective Interval history: Follow-up visit for hypertension, neck pain, and chest pain. Spoke with him she reports that patient has been out of her room today and overall feeling better with no acute complaints. Patient is seen and examined in her room, appears to be in better spirits today. She reports that chest pain is relieved with Lidoderm patch, neck pain and general body aches are relieved with pain pill. He denies any fevers, chills, nausea, vomiting, diarrhea, cough, shortness of breath. She did receive a breathing treatment and states that this helped her breathing better. Physical Exam Vital signs: Vital Signs 11/15/17 08:21 Pulse Rate 72 Respiratory Rate 16 Narrative: GENERAL: This is a well-nourished obese -[place] female, appears depressed, in NAD. SKIN: Cool and dry. HEAD: Atraumatic. Normocephalic. EYES: Pupils equal round and reactive. No scleral icterus. No injection or drainage. ENT: Nose without bleeding, purulent drainage. Airway patent. NECK: Trachea midline. No JVD. Supple. CARDIOVASCULAR: Regular rate and rhythm without murmurs, gallops, or rubs. RESPIRATORY: Clear to auscultation. Breath sounds equal bilaterally. No wheezes , rales, or rhonchi. GASTROINTESTINAL: Abdomen soft, obese, non-tender, nondistended. MUSCULOSKELETAL: Extremities without clubbing, cyanosis, or edema. No calf tenderness. NEUROLOGICAL: Awake and alert, oriented x3. No obvious cranial nerves deficits noted. Motor and sensory grossly within normal limits. Normal speech. Results - Labs CBC & Chem 7: 11/12/17 11:21 11/13/17 15:36 Labs: Laboratory Results - last 24 hr 11/12/17 11/12/17 11/13/17 11:21 11:21 15:36 WBC 8.7 RBC 4.54 Hgb 12.4 Hct 37.8 MCV 83.2 MCH 27.3 MCHC 32.8 RDW 13.7 Plt Count 337 MPV 7.9 Neut % (Auto) 62.7 Lymph % (Auto) 25.7 Rains % (Auto) 8.0 Eos % (Auto) 2.8 Baso % (Auto) 0.8 Neut # (Auto) 5.5 Lymph # (Auto) 2.2 Rains # (Auto) 0.7 Eos # (Auto) 0.2 Baso # (Auto) 0.1 CBC Comment DIFF FINAL Sodium 142 139 Potassium 3.7 4.1 Chloride 106 102 Carbon Dioxide 28.2 28.6 Anion Gap 8 8 BUN 16 17 Creatinine 1.12 H 1.20 H Estimated GFR 60 L 56 L Random Glucose 94 85 Hemoglobin A1c 5.4 Calcium 9.2 9.8 Total Bilirubin 0.4 AST 34 ALT 36 Alkaline Phosphatase 177 H Troponin I LESS THAN 0.02 L Total Protein 8.7 H Albumin 3.7 Triglycerides 26 L Cholesterol 211 H LDL Cholesterol 156 H HDL Cholesterol 49.6 Cholesterol/HDL Ratio 4.25 TSH 3rd Generation 0.941 Ethyl Alcohol LESS THAN 3 11/13/17 11/14/17 20:48 11:52 WBC RBC Hgb Hct MCV MCH MCHC RDW Plt Count MPV Neut % (Auto) Lymph % (Auto) Rains % (Auto) Eos % (Auto) Baso % (Auto) Neut # (Auto) Lymph # (Auto) Rains # (Auto) Eos # (Auto) Baso # (Auto) CBC Comment Sodium Potassium Chloride Carbon Dioxide Anion Gap BUN Creatinine Estimated GFR Random Glucose Hemoglobin A1c Calcium Total Bilirubin AST ALT Alkaline Phosphatase Troponin I LESS THAN 0.02 L LESS THAN 0.02 L Total Protein Albumin Triglycerides Cholesterol LDL Cholesterol HDL Cholesterol Cholesterol/HDL Ratio TSH 3rd Generation Ethyl Alcohol Assessment and Plan - Plan 57-year-old -[place] female known to me from prior psych admission with a past medical history of HTN, DM, TIA, schizophrenia, asthma, peptic ulcer disease, 1 seizure, arthritis, and CKD who presented to the emergency department under [email or web address] act. Patient apparently was following up with her PCP at [facility] and reported suicidal ideation and placed under Bassett act and brought to hospital for psychiatric evaluation. Patient was seen and evaluated in the emergency department, cleared medically and admitted to inpatient psychiatry unit. [facility] has been consulted to assist with management of hypertension as well as history of chest pain. Schizophrenia -Treatment plan per psychiatry, greatly appreciated. Hypertension, with borderline hypotension -Nurse reports systolic BP this morning 98 -We will decrease lisinopril to 10 mg mg daily, continue Norvasc 10 mg daily and HCTZ, BP meds with parameters. Discussed with patient -Monitor and adjust accordingly. Atypical chest pain -Patient reports chest pain has always been there, reproducible with sternal palpation. -Portable chest x-ray demonstrates probable early CHF -Initial troponin negative, EKG with normal sinus rhythm, similar to prior EKGs - troponin x3 negative, Lidoderm patch to chest pain has improved. Neck pain/reduced ROM - On exam ROM is limited, but equal. - X-ray with mild degenerative disc changes at the C3-C4, C5-C6 and C6-C7 levels with mild degenerative joint changes, no N/V, headache, photophobia - PRN Tylenol, with improvement in pain. Asthma - Schedule Duonebs and PRN History of diabetes, diet controlled CKD-monitor labs as needed. -Hemoglobin A1c 5.5 (10/02/17), regular diet. Low grade temp - No fevers recorded. DVT prophylaxis-ambulation Discussed with patient and nurse.
[2017-11-15] MEDS: QUEtiapine 25 MG Tablet PO SCH (21:41)
[2017-11-16] MEDS: Ferrous Sulfate 325 MG Tablet PO SCH (08:45)
[2017-11-16] MEDS: Lidocaine 5% Patch T-DERMAL SCH (08:46)
[2017-11-16] MEDS: amLODIPine 10 MG Tablet PO SCH (08:46)
[2017-11-16] MEDS: Acetaminophen 325 MG Tablet PO PRN (08:51)
[2017-11-16] MEDS: Lisinopril 10 MG Tablet PO SCH (09:28)
--- NOTE | 2017-11-16 11:19 | P.PN ---
Subjective Interval history: Follow-up visit for hypertension, neck pain, and chest pain. Spoke with nurse reports patient has been doing well and has not had any acute complaints. Patient is seen and examined the day room and appears to be in no acute distress. She reports that her neck pain has resolved, now able to move it much better. She denies any chest pain at the moment, currently has a "pain patch" in place. She denies any fevers, chills, nausea, vomiting, diarrhea, shortness of breath or cough. States she may be DC today. Physical Exam Vital signs: Vital Signs 11/15/17 23:25 11/16/17 06:11 Temperature 36.8 C 36.9 C Pulse Rate 95 H 90 Respiratory Rate 18 16 Blood Pressure 98/58 L 121/62 Pulse Oximetry 97 97 Narrative: GENERAL: This is a well-nourished obese -[place] female, appears depressed, in NAD. SKIN: Cool and dry. HEAD: Atraumatic. Normocephalic. EYES: Pupils equal round and reactive. No scleral icterus. No injection or drainage. ENT: Nose without bleeding, purulent drainage. Airway patent. NECK: Trachea midline. CARDIOVASCULAR: Regular rate and rhythm without murmurs, gallops, or rubs. RESPIRATORY: Clear to auscultation. Breath sounds equal bilaterally. No wheezes , rales, or rhonchi. GASTROINTESTINAL: Abdomen soft, obese, non-tender, nondistended. MUSCULOSKELETAL: Extremities without clubbing, cyanosis, or edema. No calf tenderness. NEUROLOGICAL: Awake and alert, oriented x3. No obvious cranial nerves deficits noted. Motor and sensory grossly within normal limits. Normal speech. Results - Labs CBC & Chem 7: 11/12/17 11:21 11/13/17 15:36 Assessment and Plan - Plan 57-year-old -[place] female known to me from prior psych admission with a past medical history of HTN, DM, TIA, schizophrenia, asthma, peptic ulcer disease, 1 seizure, arthritis, and CKD who presented to the emergency department under Bassett act. Patient apparently was following up with her PCP at [facility] and reported suicidal ideation and placed under Bassett act and brought to hospital for psychiatric evaluation. Patient was seen and evaluated in the emergency department, cleared medically and admitted to inpatient psychiatry unit. [facility] has been consulted to assist with management of hypertension as well as history of chest pain. Schizophrenia -Treatment plan per psychiatry, greatly appreciated. Hypertension, with borderline hypotension -Lisinopril was decreased to 10mg daily, continue Norvasc 10 mg daily and HCTZ, BP meds with parameters. - BP this am stable -Rx for new dose of Lisinopril printed, discussed with patient and nurse. Atypical chest pain -Patient reports chest pain has always been there, reproducible with sternal palpation. -Portable chest x-ray demonstrates probable early CHF -Initial troponin negative, EKG with normal sinus rhythm, similar to prior EKGs - troponin x3 negative, Lidoderm patch to chest pain has improved. Neck pain/reduced ROM - On exam ROM is limited, but equal. - X-ray with mild degenerative disc changes at the C3-C4, C5-C6 and C6-C7 levels with mild degenerative joint changes, no N/V, headache, photophobia - PRN Tylenol, with improvement in pain. Asthma - Schedule Duonebs and PRN History of diabetes, diet controlled CKD-monitor labs as needed. -Hemoglobin A1c 5.5 (10/02/17), regular diet. DVT prophylaxis-ambulation [facility] will sign off, please reconsult if needed. Discussed Condition With: Patient and RN
--- NOTE | 2017-11-16 14:24 | P.PNPSY ---
Subjective Remarks: Patient seen and examined with nurse in coverage for Dr. Pinto. Chart reviewed. Case discussed with nursing staff. On my examination today, the patient denies suicidal or homicidal ideation. She denies audiovisual hallucinations. Mood is "fine." She says that she feels improved because she found out that she has "arthritis in my chest. I do not have leukemia." Denies side effects from medications. No acute physical complaints. Patient is hopeful for discharge soon. I do not see that any discharge planning has been undertaken, and I have left a message for the counselor color making supervisor Lidia Gomes to work on a discharge plan for this patient. Vital Signs Temp Pulse Resp BP Pulse Ox 11/16/17 06:11 98.5 F 90 16 121/62 97 11/15/17 23:25 98.3 F 95 H 18 98/58 L 97 Labs reviewed. Stable, decreased GFR. Elevated alkaline phosphatase. Review of Systems All other systems reviewed negative except as stated in HPI Mental Status Examination Appearance: Appropriate Consciousness: Alert Orientation: Person, Place (At least) Motor Activity: Normal gait, Other (No motor abnormalities noted) Speech: Unremarkable Language: Adequate Fund of Knowledge: Adequate Attention and Concentration: Adequate Memory: Unremarkable Mood: Other ("Fine") Affect: Irritable (Mild), Blunt Thought Process & Associations: Circumstantial Thought Content: Appropriate Hallucination Type: None Delusion Type: None Suicidal Ideation: No Suicidal Plan: No Suicidal Intention: No Homicidal Ideation: No Homicidal Plan: No Homicidal Intention: No Insight: Poor Judgment: Poor Assessment and Plan - Assessment (1) Schizoaffective disorder Code(s): F25.9 - Schizoaffective disorder, unspecified Status: Acute - Plan Plan: Continue current psychiatric medications as ordered. Continue to monitor on the inpatient unit. Continue other medications and care as ordered. Justification for Continued Inpatient Stay: Monitoring for impairment in safety, none noted. Discharge Planning: Possible discharge tomorrow, Thursday
[2017-11-16] MEDS: QUEtiapine 25 MG Tablet PO SCH (20:57)
[2017-11-17] MEDS: Ferrous Sulfate 325 MG Tablet PO SCH (09:00)
[2017-11-17] MEDS: amLODIPine 10 MG Tablet PO SCH (09:00)
[2017-11-17] MEDS: Lisinopril 10 MG Tablet PO SCH (09:00)
[2017-11-17] MEDS: Lidocaine 5% Patch T-DERMAL SCH (10:52)
[2017-11-17 13:05] VITALS: BP 116/69; PULSE 97; RESP 18; TEMP 98.9; O2SAT 97
--- NOTE | 2017-11-17 15:13 | P.HPPSY ---
Provisional Diagnosis Admission Date: November 12, 2017 17:26 Competence Certification of Person's Competence To Provide Express and Informed Consent I have personally examined Delores Escamilla, a person being served at [facility] on, November 17, 2017 1513. Express and informed consent means consent voluntarily given in writing, by a competent person, after sufficient explanation and disclosure of the subject matter involved to enable the person to make a knowing and willful decision without any element of force, fraud, deceit, duress, or other form of constraint or coercion. This person is 18 years of age or older, is not now known to be incompetent to consent to treatment with a guardian advocate, and does not have a health care surrogate or proxy currently making medical treatment decisions. I have found this person to be one of the following: [] Competent to provide express and informed consent, as defined above, for voluntary admission to this facility and is competent to provide express and informed consent for treatment. He/she has the consistent capacity to make well reasoned, willful, and knowing decisions concerning his or her medical or mental health treatment. The person fully and consistently understands the purpose of the admission for examination/placement and is fully capable of personally exercising all rights assured under [place] [] Incompetent to provide express and informed consent to voluntary admission, and this is incompetent to provide express and informed consent to treatment. The person must be transferred to involuntary status and a petition for a guardian advocate filed with the Circuit Court. [] Refusing to provide express and informed consent to voluntary admission but is competent to provide express and informed consent for treatment. The person must be discharged or transferred to involuntary status. Form shall be completed within 24 hours of a person's arrival at the receiving facility and filed in the clinical record of each person: 1. Admitted on a voluntary basis 2. Permitted to provide express and informed consent to his/her own treatment 3. Allowed to transfer from involuntary to voluntary status 4. Prior to permitting a person to consent to his or her own treatment after having been previously found incompetent to consent to treatment. History of Present Illness - Inpatient Certification I certify that the inpatient services were ordered in accordance with Medicare regulations governing the order. This includes certification that hospital inpatient services are reasonable and necessary and in the case of services not specified as inpatient-only under 42 CFR 419.22(n), that they are appropriately provided as inpatient services in accordance to with the 2-midnight benchmark under 43 CFR 412.3(e) I certify that inpatient psychiatric hospital services are medically necessary. Evaluation and treatment and/or diagnostic testing are expected to improve the patient's condition. The patient needs on a daily basis, active treatment furnished directly by or requiring the supervision of inpatient psychiatric facility personnel. Medications and Allergies Active Medications: Active Medications Acetaminophen (Tylenol) 650 mg PO Q4H PRN PRN Reason: PAIN 1-5 / TEMP > 101 Last Admin: 11/16/17 08:51 Dose: 650 mg Al Hydrox/Mg Hydrox/Simethicone (Mag-Al Plus Susp Liq) 30 ml PO Q6H PRN PRN Reason: DYSPEPSIA Al Hydroxide/Mg Hydroxide (Milk Of Magnesia Liq) 30 ml PO DAILY PRN PRN Reason: CONSTIPATION Albuterol (Duoneb Neb (Suzi)) 1 ampul NEB Q8HR WHILE AWAKE NEB [facility] Last Admin: 11/17/17 07:37 Dose: Not Given Albuterol (Duoneb Neb (Prn)) 1 ampul NEB Q4HR NEB PRN PRN Reason: SOB / WHEEZING Amlodipine Besylate (Norvasc) 10 mg PO DAILY [facility] Last Admin: 11/17/17 09:00 Dose: 10 mg Diphenhydramine HCl (Benadryl) 50 mg PO HS PRN PRN Reason: INSOMNIA Escitalopram Oxalate (Lexapro) 20 mg PO DAILY [facility] Last Admin: 11/17/17 09:00 Dose: 20 mg Ferrous Sulfate (Ferosul) 325 mg PO DAILY [facility] Last Admin: 11/17/17 09:00 Dose: 325 mg Hydrochlorothiazide (Microzide) 12.5 mg PO DAILY [facility] Last Admin: 11/17/17 09:00 Dose: 12.5 mg Hydroxyzine HCl (Atarax) 50 mg PO Q6H PRN PRN Reason: ANXIETY Lidocaine HCl (Lidoderm 5% Patch.12 Hr) 1 patch T-DERMAL DAILY [facility] Last Admin: 11/17/17 10:52 Dose: 1 patch Lisinopril (Prinivil) 10 mg PO DAILY [facility] Last Admin: 11/17/17 09:00 Dose: 10 mg Quetiapine Fumarate (Seroquel) 50 mg PO HS [facility] Last Admin: 11/16/17 20:57 Dose: 50 mg Risperidone (Risperdal) 2 mg PO DAILY@0800,1800 [facility] Last Admin: 11/17/17 09:00 Dose: 2 mg Allergies Allergy/AdvReac Type Severity Reaction Status Date / Time dawit Allergy Severe Rash Verified 11/16/17 19:46 morphine Allergy Severe dizziness, Verified 11/16/17 19:49 unresponsiveness orange Allergy Severe Rash Verified 11/16/17 19:50 Home Medications Medication Instructions Recorded Confirmed Type amlodipine 10 mg PO QDRHS 11/14/17 11/14/17 History escitalopram oxalate 20 mg PO DAILY 11/14/17 11/14/17 History ferrous sulfate 325 mg PO DAILY 11/14/17 11/14/17 History hydrochlorothiazide 12.5 mg PO DAILY 11/14/17 11/14/17 History risperidone 1 mg PO DAILY 11/14/17 11/14/17 History Results - Labs CBC & Chem 7: 11/12/17 11:21 11/13/17 15:36 Exam Vital signs: Vital Signs 11/16/17 16:50 11/17/17 06:37 Temperature 98.9 F Pulse Rate 91 H 97 H Respiratory Rate 19 18 Blood Pressure 116/69 Pulse Oximetry 97 Mental Status Examination Appearance: Appropriate Consciousness: Alert Orientation: Person, Place (At least) Motor Activity: Normal gait, Other (No motor abnormalities noted) Speech: Unremarkable Language: Adequate Fund of Knowledge: Adequate Attention and Concentration: Adequate Memory: Unremarkable Mood: Other ("Fine") Affect: Irritable (Mild), Blunt Thought Process & Associations: Circumstantial Thought Content: Appropriate Hallucination Type: None Delusion Type: None Suicidal Ideation: No Suicidal Plan: No Suicidal Intention: No Homicidal Ideation: No Homicidal Plan: No Homicidal Intention: No Insight: Poor Judgment: Poor Assessment and Plan - Assessment (1) Schizoaffective disorder Code(s): F25.9 - Schizoaffective disorder, unspecified Status: Acute
--- NOTE | 2017-11-17 15:14 | P.DSPSY ---
Psychiatry Discharge Summary Inpatient Psychiatric care?: Yes Advance Directives: No Mental Health Advance Directive: No Health Care Proxy: No - Admission Admission Date: November 12, 2017 17:26 - Admission Diagnosis (1) Schizoaffective disorder Code(s): F25.9 - Schizoaffective disorder, unspecified Brief History: Patient is a 57-year-old -[place] female who comes for under a Bassett act signed by a illness kidney D0 dated 11/12/2017 and 9:45 AM that document is reviewed essentially stating patient states hearing voices to hurt cut herself feels she will do it if she leaves here today and goes home she states she is not sleeping and this is making it worse patient tearful today in the room patient seen screen in our ED blood alcohol level negative there was no urine toxicology drawn. Of interest patient was hospitalized here 10/01/2017 through under visit [phone] under my care. Patient was discharged to her home in stable condition. Patient seen in her room with nurse. Patient did recognize me. Patient states she lives with her younger sister that she has noticed increased stress in the house with her running out of her medication a few days ago, not being seen until yesterday by her clinician leading to increased auditory hallucinations of a command nature telling her to harm herself and others. She denies any alcohol or drug use with this. She states the voices are intermittent but quite intense and overwhelming. She states she is I am hearing them at this instant. However she has had strong urges to harm herself and others prior to this point in time. Patient has long history of mental health issues was hospitalized here before as mentioned above. She states her first psychiatric contact hospitalization in her early 20s. She denies prior suicide attempts. Patient is single and lives with her sister. At the present time patient does meet criteria for inpatient psychiatric hospitalization of the Bassett act I will do first opinion request second opinion. We will feel she does have capacity signed for medication. We will increase her Resporal to 2 mg twice daily at 8 AM and 6 PM and add Seroquel 50 mg at at bedtime. We will hospitalist also consult with us about her various medical issues. Hopeless be fairly short stay and we can return her to her family Tobacco Use In Past 30 Days: No How Often Do You Have a Drink Containing Alcohol: Monthly or less Hospital Course: Patient was admitted to a locked, inpatient psychiatric unit. A general medical consultation was obtained. Appropriate precautions were in place throughout patient's hospital stay. Patient was seen and examined on the unit by psychiatry and also visited by counselor. Psychotropic medications were adjusted. There was no evidence of any suicidality or homicidality on the inpatient unit. There was no evidence of self-care deficit. On the day of discharge: Patient seen and examined with nurse. Chart reviewed. Case discussed with nursing staff. No behavioral issues noted overnight. Case discussed in treatment team. Counselor has reached out to patient's sister with whom the patient lives, and sister is reportedly comfortable with accepting the patient home today. On my examination today, the patient is requesting discharge from the inpatient psychiatric unit today. She denies any suicidal or homicidal ideation, intent or plan and contracts for safety. I can elicit no depressive or hypomanic/manic symptoms. She denies any audiovisual hallucinations. She denies any command auditory hallucinations. I can elicit no delusional material. She is future oriented. She denies side effects from medications. I did offer and recommend a long-acting injectable antipsychotic to the patient prior to discharge, but she has declined. She has no physical complaints. Weighing the relevant factors and based on the available evidence, I slip injector and applicator that the patient does not meet criteria for ongoing involuntary psychiatric hospitalization. There is no evidence of imminent risk of harm to self or others, nor is there evidence of self-care deficit to substantiate involuntary hospitalization. The patient is requesting discharge from the inpatient psychiatric unit today, and I have no basis to retain her over her objection. Patient will be discharged home today with psychiatric follow-up as arranged by counselor. Patient is also to follow up with primary care. I have counseled the patient regarding warning signs for need to return to the psychiatric emergency room as part of a general safety plan. - Discharge Discharge Date: 11/17/17 - Discharge Diagnosis (1) Schizoaffective disorder Diagnosis: Principal (Stabilized) Code(s): F25.9 - Schizoaffective disorder, unspecified Status: Acute Discharge Disposition: Home - Discharge Instructions Discharge Diet: Regular Diet Activities You Can Perform: Weight Bearing As Tolerat - Discharge Time > 30 minutes Mental Status Examination Appearance: Appropriate Consciousness: Alert Orientation: Person, Place, Date/Time (Approximate), Situation Motor Activity: Normal gait, Other (No abnormal motor movements noted) Speech: Unremarkable Language: Adequate Fund of Knowledge: Adequate Attention and Concentration: Adequate Memory: Unremarkable Mood: Appropriate Affect: Blunt Thought Process & Associations: Intact, Logical, Linear Thought Content: Appropriate Hallucination Type: None Delusion Type: None Suicidal Ideation: No Suicidal Plan: No Suicidal Intention: No Homicidal Ideation: No Homicidal Plan: No Homicidal Intention: No Insight: Poor (Chronic condition) Judgment: Poor (Chronic condition) Discharge/Advance Care Plan - Results Vital Signs: Last Vital Signs Temp 98.9 F 11/17/17 06:37 Pulse 97 H 11/17/17 06:37 Resp 18 11/17/17 06:37 BP 116/69 11/17/17 06:37 Pulse Ox 97 11/17/17 06:37 Lab Results: Laboratory Results Hemoglobin A1c 5.4 % (4.3-6.0) 11/13/17 15:36 Triglycerides 26 MG/DL (42-150) L 11/13/17 15:36 Cholesterol 211 MG/DL (120-200) H 11/13/17 15:36 HDL Cholesterol 49.6 MG/DL (40.0-60.0) 11/13/17 15:36 Summary of Procedures: None done Pending Results: None - Medications Number of antipsychotic medications at discharge: 2 Appropriate use of more than 1 antipsychotic med: Justification other than those in allowable values 1-3, document here: (Required multiple antipsychotics for stabilization) - Discharge Care Plan Goals to Promote Your Health: * To prevent worsening of your condition and complications * To maintain your health at the optimal level Directions to Meet Your Goals: Take your medications as prescribed Follow your dietary instruction Follow activity as directed Keep your appointments as scheduled Take your immunizations and boosters as scheduled If your symptoms worsen call your PCP, if no PCP go to Urgent Care Center or Emergency Room For 08/12 questions related to your inpatient stay or results of tests pending at discharge, please contact Dr. Nnamdi Almaguer MD at [phone] Smoking is Dangerous to Your Health. Avoid second hand smoking
== END 2017-11-17 16:10 | disposition home or self-care (01) ==
LOC: H260 17:26
PROVIDERS: ADMIT Psychiatry & Neurology Psychiatry; ATTEND Psychiatry & Neurology Psychiatry